=== PATIENT | female | born 1985 | race Caucasian/White ===

== ENCOUNTER 2017-11-20 02:10 | Emergency (ER) | payer SELFPAY ==
[~2017-11-20] VITALS: Ht 165.1 cm; Wt 49.9 kg
--- NOTE | 2017-11-20 02:41 | NUR ---
@ 0221 Patient brought in by RA [id number], patient was found in a hotel room, nonresponsive, not breathing. She was cyanotic per report. Patients boyfriend told EMS she overdosed on IV Heroin. Patient was given 2mg Narcan intranasally and 1mg IVP by EMS. Patient comes into the ER aggitated but able to comply with directions. patient respirations even and unlabored. No cardiovascular distress noted. @0225 [employer] at bedside for patient evaluation. [employer] report complete per Officers. @0240 Patients significant other at bedside. patient is currently verbally responsive, able to speak in complete sentences. Able to follow directions. Patient states " I do not want to be admitted, no matter what". Patient states she injected IV heroin , but is unsure of the amount used.
--- NOTE | 2017-11-20 02:53 | NUR ---
Patient remains in bed, AAOx4. No respiratory distress noted. SaO2 @ 97% on Room air at this time. no further distress noted. No nausea/vomiting/chest pain noted.
--- NOTE | 2017-11-20 03:32 | NUR ---
Patient discharged to home in stable conditon. Written and verbal after care instructions given. Patient verbalizes understanding of instructions. VSS. Respirations even + unlabored. No distress noted. Patient left ER in steady gait. Pt accompanied by significant other.
--- NOTE | 2017-11-20 03:33 | NUR ---
Patient remains AAOx4. no respiratory distress noted. Respirations even and unlabored. Symmetrical rise noted. Ambulatory with stable gait. Significant other at bedside. patient cleared for dischrage per ER MD. Patient denies SI/HI/AH/VH. Resource list provided to patient r/t rehabilitation facilities. Patient education provided. Patient educated not to drive or operate heavy machinery due to recent use of IV Heroin. CRITICAL CARE PHYSICIAN Peripheral IV which was placed by EMS, removed at this time per ER MD instruction.
--- NOTE | 2017-11-20 03:37 | NUR ---
all belongings taken home with patient
[2017-11-20 03:38] VITALS: BP 101/72
== END 2017-11-20 03:39 | disposition home or self-care (01) ==
LOC: ER 02:11
DX: T40.1X1A Poisoning by heroin, accidental (unintentional), initial encounter (principal); Y92.89 Other specified places as the place of occurrence of the external cause
CPT/HCPCS: A4663